=== PATIENT | male | born 1995 | race Caucasian/White ===

== ENCOUNTER 2017-09-28 19:13 | Emergency (ER) | payer SELFPAY, OTHER ==
[2017-09-28] MEDS: predniSONE 20 MG TABLET PO (19:44)
[2017-09-28 20:17] LABS: INFLUENZA A PATIENT POSITIVE (NEGATIVE); INFLUENZA B PATIENT NEGATIVE (NEGATIVE); OBC FLU VALID
== END 2017-09-28 20:47 | disposition home or self-care (01) ==
LOC: ER 19:13
DX: J09.X2 Influenza due to identified novel influenza A virus with other respiratory manifestations (principal)
CPT/HCPCS: 87804; 87804-59; 99284; J7512

== ENCOUNTER 2017-12-18 03:14 | Emergency (ER) | payer OTHER ==
[2017-12-18] MEDS: ONDANSETRON ODT 4 MG TAB.RAPDIS. PO (03:48)
[2017-12-18 04:07] LABS: BACTERIA,URINE 0 /HPF (0-FEW); BARBITURATES NEG (NEG); BENZODIAZEPINES NEG (NEG); BILIRUBIN,URINE NEGATIVE (NEG); CANNABINOIDS NEG (NEG); CLARITY,URINE CLEAR; COCAINE NEG (NEG); COLOR,URINE YELLOW; GLUCOSE,URINE NEGATIVE (NEG); METHADONE NEG (NEG); NITRITE,URINE NEGATIVE (NEG); OPIATES NEG (NEG); PH,URINE 6.5; PHENCYCLIDINE NEG (NEG); PROTEIN,URINE NEGATIVE (NEG-TRACE); RBC,URINE 0 /HPF (0-2); SQUAMOUS EPITHELIAL CELL,UR OCC /LPF; WBC,URINE OCC /HPF (0-4)
[2017-12-18 04:14] LABS: AMPHETAMINE/METHAMPHETAMINE NEG (NEG); ETHANOL, URINE NEG (NEG)
== END 2017-12-18 04:25 | disposition home or self-care (01) ==
LOC: ER 03:14
DX: R51 Headache (principal); R42 Dizziness and giddiness
CPT/HCPCS: 70450; 80307; 81001; 93005; 99285-25; Q0162

== ENCOUNTER 2018-01-11 21:33 | Emergency (ER) | payer OTHER | END 2018-01-11 22:15 | disposition home or self-care (01) | LOC: ER 22:15 | DX: R05 Cough (principal); J02.9 Acute pharyngitis, unspecified; R50.9 Fever, unspecified; J34.89 Other specified disorders of nose and nasal sinuses; Z88.0 Allergy status to penicillin; Z88.1 Allergy status to other antibiotic agents; Z88.8 Allergy status to other drugs, medicaments and biological substances | CPT/HCPCS: 99283 ==

== ENCOUNTER 2018-03-02 06:03 | Emergency (ER) | payer OTHER ==
[2018-03-02 06:27] LABS: ADD MAN DIFF? NO
[2018-03-02 06:35] LABS: BASO # 0.1 x10^3/uL (0.0-0.2); BASO % 1 % (0-3); EOS # 0.2 x10^3/uL (0.0-0.7); EOS % 4 % (0-3); HEMOGLOBIN 15.8 g/dL (13.0-17.5); LYMPH # 2.2 x10^3/uL (1.0-4.8); LYMPH % 39 % (24-48); MEAN CORPUSCULAR HEMOGLOBIN 31 pg (25-35); MEAN CORPUSCULAR HGB CONC 35 g/dL (31-37); MEAN CORPUSCULAR VOLUME 88 fL (79-100); MONO # 0.7 x10^3/uL (0.0-1.1); MONO % 13 % (0-9); NEUT # 2.4 x10^3uL (1.8-7.7); NEUT % 42 % (31-73); PLATELET COUNT 257 x10^3/uL (140-400); RED BLOOD COUNT 5.13 x10^6/uL (4.30-5.70); RED CELL DISTRIBUTION WIDTH 13.8 % (11.5-14.5); WHITE BLOOD COUNT 5.7 x10^3/uL (4.0-11.0)
[2018-03-02 06:37] LABS: ANION GAP 7 (6-14); BLOOD UREA NITROGEN 15 mg/dL (8-26); BUN/CREATININE RATIO 19 (6-20); CARBON DIOXIDE 29 mmol/L (21-32); CHLORIDE 103 mmol/L (98-107); CREATININE 0.8 mg/dL (0.7-1.3); GLUCOSE 109 mg/dL (70-99); SODIUM 139 mmol/L (136-145)
[2018-03-02 06:43] LABS: ALBUMIN 4.2 g/dL (3.4-5.0); ALBUMIN/GLOBULIN RATIO 1.5 (1.0-1.7); ALK PHOS 93 U/L (46-116); ALT (SGPT) 40 U/L (16-63); AST (SGOT) 27 U/L (15-37); TOTAL BILIRUBIN 0.7 mg/dL (0.2-1.0)
[2018-03-02 06:47] LABS: TROPONINI < 0.017 ng/mL (0.000-0.055)
== END 2018-03-02 07:30 | disposition home or self-care (01) ==
LOC: ER 06:03
DX: F41.9 Anxiety disorder, unspecified (principal); Z88.2 Allergy status to sulfonamides; Z88.0 Allergy status to penicillin; Z88.8 Allergy status to other drugs, medicaments and biological substances
CPT/HCPCS: 36415; 71045; 80053; 84484; 85025; 93005; 96374; 99285-25; J2060

== ENCOUNTER 2018-05-06 21:50 | Emergency (ER) | payer SELFPAY ==
[~2018-05-06] VITALS: Ht 182.9 cm; Wt 72.6 kg
[~2018-05-06 21:50] MED LIST: BENZ100C PO; GUAI600T47 PO; ONDA4TAB10 PO; OSEL75CA PO; PRED-220 PO
--- NOTE | 2018-05-06 22:58 | PHYS DOC ---
Past Medical History Past Medical History: No Pertinent History Past Surgical History: No Surgical History Smoking: Cigarettes (The patient is a nonsmoker.) Alcohol Use: None Drug Use: None Adult General Chief Complaint Chief Complaint: WEAKNESS/GENERALIZED HPI HPI Patient is a 23-year-old female who presents to the emergency department for evaluation. He states that today he is just felt generally weak and fatigued, as well as having some tightness in his chest and abdomen. He describes this tightness is muscle tightness. Has not had any nausea, vomiting, diarrhea, or urinary difficulties, although he states his urine has been dark, but still yellowish in color. He does admit to a mild headache. He has not had any fevers or chills. He denies any other focal painful areas. There are no alleviating, or exacerbating factors to his symptoms. He denies any numbness, or focal weakness. He has not been doing any excessive working outside. Denies any recent tick bites, or any exposure to areas where he might of coming contact with ticks. Review of Systems Review of Systems Constitutional: Denies fever or chills [] Eyes: Denies change in visual acuity, redness, or eye pain [] HENT: Denies nasal congestion or sore throat [] Respiratory: Denies cough or shortness of breath. Denies pleuritic pain.[] Cardiovascular: No additional information not addressed in HPI [] GI: Denies abdominal pain, other than some abdominal muscle tightness, nausea, vomiting, bloody stools or diarrhea [] : Denies dysuria or hematuria [] Musculoskeletal: Denies back pain or joint pain [] Integument: Denies rash or skin lesions [] Neurologic: Denies headache, focal weakness or sensory changes [] Endocrine: Denies polyuria or polydipsia [] All other systems were reviewed and found to be within normal limits, except as documented in this note. Current Medications Current Medications Current Medications Medications (Trade) Dose Ordered Sig/Galindo Start Time Stop Time Status Last Admin Dose Admin Sodium Chloride 1,000 ml @ 1,000 mls/hr Q1H 05/06/18 23:00 05/06/18 23:59 DC 05/06/18 23:12 1,000 MLS/HR Allergies Allergies Allergies Coded Allergies Type Severity Reaction Last Updated Verified Penicillins Allergy Severe Swelling 05/06/18 Yes acetaminophen Allergy Severe Swelling 05/06/18 Yes amoxicillin Allergy Severe Swelling 05/06/18 Yes dextromethorphan Allergy Severe Swelling 05/06/18 Yes doxylamine Allergy Severe Swelling 05/06/18 Yes ibuprofen Allergy Severe Swelling 05/06/18 Yes pseudoephedrine Allergy Severe Swelling 05/06/18 Yes Physical Exam Physical Exam PHYSICAL EXAM: CONSTITUTIONAL: Well developed, well nourished HEAD: normocephalic, atraumatic EENT: PERRL, EOMI. Conjunctivae normal color, sclerae non-icteric; moist mucous membranes. NECK: Supple, non-tender; no meningismus. LUNGS: Lungs CTA, breathing even and unlabored. Normal air movement. HEART: Regular rate and rhythm, no murmur CHEST: No deformity; non-tender ABDOMEN: The abdomen is soft, and non-tender, no masses or bruits. EXTREM: Normal ROM; no deformity, no calf tenderness. Normal pulses palpable in all extremities. There is no pedal edema. SKIN: No rash; no diaphoresis NEURO: Alert; normal speech and cognition; CN's grossly intact; strength grossly intact without focal deficit. BACK: No CVA TTP. Current Patient Data Vital Signs Vital Signs Date Time Temp Pulse Resp B/P (MAP) Pulse Ox O2 Delivery O2 Flow Rate FiO2 05/06/18 22:00 74 20 128/58 (81) 98 Room Air Lab Values Laboratory Tests Test 05/06/18 22:22 05/06/18 23:10 Urine Collection Type Unknown Urine Color Yellow Urine Clarity Clear Urine pH 6.0 Urine Specific [place] 1.025 Urine Protein Negative mg/dL (NEG-TRACE) Urine Glucose (UA) Negative mg/dL (NEG) Urine Ketones (Stick) Negative mg/dL (NEG) Urine Blood Negative (NEG) Urine Nitrite Negative (NEG) Urine Bilirubin Negative (NEG) Urine Urobilinogen Dipstick 1.0 mg/dL (0.2 mg/dL) Urine Leukocyte Esterase Negative (NEG) Urine RBC 0 /HPF (0-2) Urine WBC 0 /HPF (0-4) Urine Squamous Epithelial Cells Occ /LPF Urine Bacteria 0 /HPF (0-FEW) Urine Mucus Marked /LPF White Blood Count 6.3 x10^3/uL (4.0-11.0) Red Blood Count 4.95 x10^6/uL (4.30-5.70) Hemoglobin 14.9 g/dL (13.0-17.5) Hematocrit 42.8 % (39.0-53.0) Mean Corpuscular Volume 86 fL (79-100) Mean Corpuscular Hemoglobin 30 pg (25-35) Mean Corpuscular Hemoglobin Concent 35 g/dL (31-37) Red Cell Distribution Width 13.6 % (11.5-14.5) Platelet Count 209 x10^3/uL (140-400) Neutrophils (%) (Auto) 53 % (31-73) Lymphocytes (%) (Auto) 33 % (24-48) Monocytes (%) (Auto) 10 % (0-9) H Eosinophils (%) (Auto) 3 % (0-3) Basophils (%) (Auto) 1 % (0-3) Neutrophils # (Auto) 3.4 x10^3uL (1.8-7.7) Lymphocytes # (Auto) 2.1 x10^3/uL (1.0-4.8) Monocytes # (Auto) 0.6 x10^3/uL (0.0-1.1) Eosinophils # (Auto) 0.2 x10^3/uL (0.0-0.7) Basophils # (Auto) 0.1 x10^3/uL (0.0-0.2) Sodium Level 140 mmol/L (136-145) Potassium Level 3.7 mmol/L (3.5-5.1) Chloride Level 104 mmol/L (98-107) Carbon Dioxide Level 29 mmol/L (21-32) Anion Gap 7 (6-14) Blood Urea Nitrogen 16 mg/dL (8-26) Creatinine 0.8 mg/dL (0.7-1.3) Estimated GFR (Cockcroft-Gault) 122.0 BUN/Creatinine Ratio 20 (6-20) Glucose Level 100 mg/dL (70-99) H Calcium Level 8.6 mg/dL (8.5-10.1) Phosphorus Level 4.3 mg/dL (2.6-4.7) Magnesium Level 1.8 mg/dL (1.8-2.4) Total Bilirubin 0.3 mg/dL (0.2-1.0) Aspartate Amino Transferase (AST) 16 U/L (15-37) Alanine Aminotransferase (ALT) 27 U/L (16-63) Alkaline Phosphatase 89 U/L (46-116) Creatine Kinase 114 U/L (39-308) Creatine Kinase MB (Mass) 0.6 ng/mL (0.0-3.6) Creatine Kinase MB Relative Index 0.5 % (0-4) Troponin I Quantitative < 0.017 ng/mL (0.000-0.055) OG-Xkm-M-Type Natriuretic Peptide 9 pg/mL (0-124) Total Protein 6.8 g/dL (6.4-8.2) Albumin 4.0 g/dL (3.4-5.0) Albumin/Globulin Ratio 1.4 (1.0-1.7) Lipase 188 U/L (73-393) Thyroid Stimulating Hormone (TSH) 1.846 uIU/mL (0.358-3.74) Free Thyroxine 0.96 ng/dL (0.76-1.46) Laboratory Tests 05/06/18 23:10 Laboratory Tests 05/06/18 23:10 EKG EKG [Normal sinus rhythm with a rate of 75 beats for minute, normal axis, normal intervals, there are no acute ischemic ST/T changes.] Radiology/Procedures Radiology/Procedures [PROCEDURE: CHEST PA & LATERAL PROCEDURE: CHEST PA LATERAL CLINICAL INDICATION: weak and dizzy COMPARISON: None FINDINGS: No pneumothorax identified. Cardiac and mediastinal contours unremarkable. No pulmonary consolidation or acute airspace disease. No acute osseous abnormalities identified. IMPRESSION: No pulmonary consolidation or acute airspace disease. ] Course & Med Decision Making Course & Med Decision Making Pertinent Labs and Imaging studies reviewed. (See chart for details) [12:00 AM: The patient's condition remained stable, he is feeling back to his baseline at this time and has no complaints. He feels well. I discussed test results, the need for close follow-up, expectant management, and return precautions.] Dragon Disclaimer Dragon Disclaimer This electronic medical record was generated, in whole or in part, using a voice recognition dictation system. Departure Departure Impression: Primary Impression: Weakness Additional Impression: Atypical chest pain Disposition: HOME, SELF-CARE Condition: STABLE Referrals: NO PCP (PCP) Patient Instructions: Chest Pain (Nonspecific), Weakness Additional Instructions: Use the provided resources to establish care with a primary care provider. Problem Qualifiers SIMON ANSARI MD May 06, 2018 22:58
[2018-05-06 23:00] LABS: BILIRUBIN,URINE NEGATIVE (NEG); CLARITY,URINE CLEAR; COLOR,URINE YELLOW; NITRITE,URINE NEGATIVE (NEG); PROTEIN,URINE NEGATIVE (NEG-TRACE)
[2018-05-06] MEDS ORDERED: IV NORMAL SALINE 1000ML BAG 1,000 ML IV SCH (23:00)
[2018-05-06 23:02] LABS: BACTERIA,URINE 0 /HPF (0-FEW); RBC,URINE 0 /HPF (0-2); SQUAMOUS EPITHELIAL CELL,UR OCC /LPF; WBC,URINE 0 /HPF (0-4)
[2018-05-06 23:20] LABS: BASO # 0.1 x10^3/uL (0.0-0.2); BASO % 1 % (0-3); EOS # 0.2 x10^3/uL (0.0-0.7); EOS % 3 % (0-3); HEMATOCRIT 42.8 % (39.0-53.0); HEMOGLOBIN 14.9 g/dL (13.0-17.5); LYMPH # 2.1 x10^3/uL (1.0-4.8); LYMPH % 33 % (24-48); MEAN CORPUSCULAR HEMOGLOBIN 30 pg (25-35); MEAN CORPUSCULAR HGB CONC 35 g/dL (31-37); MEAN CORPUSCULAR VOLUME 86 fL (79-100); MONO # 0.6 x10^3/uL (0.0-1.1); MONO % 10 % (0-9); NEUT # 3.4 x10^3uL (1.8-7.7); NEUT % 53 % (31-73); PLATELET COUNT 209 x10^3/uL (140-400); RED BLOOD COUNT 4.95 x10^6/uL (4.30-5.70); RED CELL DISTRIBUTION WIDTH 13.6 % (11.5-14.5); WHITE BLOOD COUNT 6.3 x10^3/uL (4.0-11.0)
[2018-05-06 23:32] LABS: CALCIUM 8.6 mg/dL (8.5-10.1); CREATININE 0.8 mg/dL (0.7-1.3); POTASSIUM 3.7 mmol/L (3.5-5.1)
--- NOTE | 2018-05-06 23:34 | RAD ---
PROCEDURE: CHEST PA LATERAL CLINICAL INDICATION: weak and dizzy COMPARISON: None FINDINGS: No pneumothorax identified. Cardiac and mediastinal contours unremarkable. No pulmonary consolidation or acute airspace disease. No acute osseous abnormalities identified. IMPRESSION: No pulmonary consolidation or acute airspace disease. Electronically signed by: Jae Collier DO (05/06/2018 11:31 PM) [facility]
[2018-05-06 23:36] LABS: ALBUMIN/GLOBULIN RATIO 1.4 (1.0-1.7); MAGNESIUM 1.8 mg/dL (1.8-2.4); PHOSPHORUS 4.3 mg/dL (2.6-4.7); TOTAL BILIRUBIN 0.3 mg/dL (0.2-1.0); TOTAL PROTEIN 6.8 g/dL (6.4-8.2)
[2018-05-06 23:43] LABS: FREE T4 0.96 ng/dL (0.76-1.46); THYROID STIM HORMONE (TSH) 1.846 uIU/mL (0.358-3.74)
[2018-05-07 00:15] VITALS: BP 110/66
--- NOTE | 2018-05-07 06:13 | EKG ---
[facility] [address] [place] [address] Test Date: 2018-05-06 Test Time: 23:03:13 Pat Name: Glynn Hung Department: Room: Gender: M [employer]: RICK : 1995 Requested By: SIOMN ANSARI Order Number: [id number] Reading MD: Measurements Intervals [place] Rate: 74 P: 44 CO: 164 QRS: 78 QRSD: 88 T: 53 QT: 374 QTc: 420 Interpretive Statements SINUS RHYTHM NORMAL ECG No previous ECG available for comparison
== END 2018-05-07 00:18 | disposition home or self-care (01) ==
LOC: MERGE 21:50 → ER 21:50
DX: R53.1 Weakness (principal); R07.89 Other chest pain; F17.200 Nicotine dependence, unspecified, uncomplicated; Z88.0 Allergy status to penicillin; Z88.1 Allergy status to other antibiotic agents; Z88.8 Allergy status to other drugs, medicaments and biological substances
CPT/HCPCS: 36415; 71046; 80053; 81001; 82553; 83690; 83735; 83880; 84100; 84439; 84443; 84484; 85025; 93005; 99285; J7030

== ENCOUNTER 2018-10-21 10:35 | Emergency (ER) | payer SELFPAY ==
[~2018-10-21] VITALS: Ht 182.9 cm; Wt 81.6 kg
[2018-10-21 10:40] VITALS: BP 116/55
[2018-10-21] MEDS ORDERED: LIDOCAINE WITH 8.4% SOD BICARB 3 ML DISP.SYRIN. INJ ONE (11:00)
[2018-10-21] MEDS ORDERED: HYDROcodone/APAP 5/325MG 1 TAB TABLET PO ONE (11:00)
--- NOTE | 2018-10-21 11:00 | PHYS DOC ---
Past Medical History Past Medical History: No Pertinent History (SENAIT LYLES APRN) Past Surgical History: No Surgical History (SENAIT LYLES APRN) Alcohol Use: None Drug Use: None (SENAIT LYLES APRN) Adult General Chief Complaint Chief Complaint: FOOT INJURY PAIN [facility] HPI Patient is a 23 year old male who presents with left heel pain that hurts every time he walks on it. Patient states she's noticed a black small area where he may have stepped on something but is unsure if he stepped on anything. Patient states he first noticed it about a week ago. The area has gotten very painful to walk on the last 2 days. Patient denies taking any medications. (SENAIT LYLES APRN) Review of Systems Review of Systems Constitutional: Denies fever or chills [] Eyes: Denies change in visual acuity, redness, or eye pain [] HENT: Denies nasal congestion or sore throat [] Respiratory: Denies cough or shortness of breath [] Cardiovascular: No additional information not addressed in HPI [] GI: Denies abdominal pain, nausea, vomiting, bloody stools or diarrhea [] : Denies dysuria or hematuria [] Musculoskeletal: Left heel pain. Denies back pain or joint pain [] Integument: Denies rash or skin lesions [] Neurologic: Denies headache, focal weakness or sensory changes [] All other systems were reviewed and found to be within normal limits, except as documented in this note. (SENAIT LYLES APRN) Current Medications Current Medications Current Medications Medications (Trade) Dose Ordered Sig/Galindo Start Time Stop Time Status Last Admin Dose Admin Acetaminophen/ Hydrocodone Bitart (Lortab 5/325) 1 tab 1X ONCE 10/21/18 11:00 10/21/18 11:01 UNV Diphtheria/ Tetanus/Acell Pertussis (Boostrix) 0.5 ml ONCE ONCE 10/21/18 12:45 10/21/18 12:46 DC 10/21/18 12:38 0.5 ML Lidocaine/ Epinephrine (Let Topical) 3 ml 1X ONCE 10/21/18 11:30 10/21/18 11:31 DC 10/21/18 11:27 3 ML Lidocaine/Sodium Bicarbonate (Buffered Lidocaine 1%) 3 ml 1X ONCE 10/21/18 11:00 10/21/18 11:01 DC 10/21/18 11:17 3 ML (LUCIE ALVAREZ MD) Allergies Allergies Allergies Coded Allergies Type Severity Reaction Last Updated Verified acetaminophen Allergy Severe Swelling 05/07/18 Yes dextromethorphan Allergy Severe Swelling 05/07/18 Yes doxylamine Allergy Severe Swelling 05/07/18 Yes ibuprofen Allergy Severe Swelling 05/07/18 Yes pseudoephedrine Allergy Severe Swelling 05/07/18 Yes Penicillins Allergy Intermediate 03/02/18 Yes amoxicillin Allergy Intermediate 03/02/18 Yes guaifenesin Allergy Intermediate 03/02/18 Yes (LUCIE ALVAREZ MD) Physical Exam Physical Exam Constitutional: Well developed, well nourished, no acute distress, non-toxic appearance. [] HENT: Normocephalic, atraumatic, bilateral external ears normal, oropharynx moist, no oral exudates, nose normal. [] Eyes: PERRLA, EOMI, conjunctiva normal, no discharge. [] Neck: Normal range of motion, no tenderness, supple, no stridor. [] Cardiovascular:Heart rate regular rhythm, no murmur [] Lungs & Thorax: Bilateral breath sounds clear to auscultation [] Abdomen: Bowel sounds normal, soft, no tenderness, no masses, no pulsatile masses. [] Skin: Pinpoint black circular area that is tender to touch on bottom of left heel. Warm, dry, no erythema, no rash. [] Back: No tenderness, no CVA tenderness. [] Extremities: No tenderness, no cyanosis, no clubbing, ROM intact, no edema. [] Neurologic: Alert and oriented X 3, normal motor function, normal sensory function, no focal deficits noted. [] Psychologic: Affect normal, judgement normal, mood normal. [] (SENAIT LYLES APRN) Current Patient Data Vital Signs Vital Signs Date Time Temp Pulse Resp B/P (MAP) Pulse Ox O2 Delivery O2 Flow Rate FiO2 10/21/18 10:40 97.7 75 18 116/55 (75) 98 Room Air 97.7 (LUCIE ALVAREZ MD) EKG EKG [] (SENAIT LYLES APRN) Radiology/Procedures Radiology/Procedures Left foot xray (SENAIT LYLES APRN) Impressions: [facility] [address] [place] [address] IMAGING REPORT Signed PATIENT: JARON BLACKMAN ACCOUNT: [id number] : 1995 LOCATION: ER AGE: 23 SEX: M EXAM STATUS: REG ER ORD. PHYSICIAN: SENAIT LYLES APRN REASON: POSSIBLE FOREIGN BODY IN BOTTOM OF HEEL PROCEDURE: FOOT LEFT 3V Examination: FOOT LEFT 3V History: PT STATES HE STEPPED ON A PIECE OF GLASS 1 WEEK AGO. SMALL PUNCTURE WOUND ON LT HEEL Comparison/Correlation: None Findings: 3 images of the left foot were obtained. Joint spaces are normal. No acute fracture or bony destruction. Punctate density is noted involving the lateral soft tissues about the ankle level on the AP view of the foot. This is of indeterminate significance. Impression: Punctate density at the lateral soft tissues about the ankle is of indeterminate significance. There is no plantar radiopaque foreign body. Consider further evaluation if foreign bodies are a persistent concern. Electronically signed by: Paddy Kendall MD (10/21/2018 11:26 AM) [id number] DICTATED and SIGNED BY: PADDY KENDALL MD DATE: 10/21/18 1124 (SENAIT LYLSE APRN) Course & Med Decision Making Course & Med Decision Making Patient has a pinpoint black circular area on the bottom of his left heel that is tender to palpation. There is no redness or signs of infection. Patient does not remember injuring her foot or stepping on anything. Patient's rate his pain a 9 out of 10/she went to standing turned a walk. Patient states that for the last week but has gotten painful in the last 2 days. Alert and oriented. Walks with a steady gait. Mucous membranes moist. Skin pink warm and dry. Vital signs within normal limits. Differentials for the patient is a wart or a foreign body. Xray shows Punctate density at the lateral soft tissues about the ankle is of indeterminate significance. There is no plantar radiopaque foreign body. Consider further evaluation if foreign bodies are a persistent concern. The area is numbed with LET and lidocaine. Abscess Incision and Drainage with irrigation by me: Location: Left heel Anesthesia: LET and Local 1% Lidocaine Technique: Irrigated with copious amounts of Normal saline and Chlorhexidine. Disrupted loculations w/ instrumentation Packing: None Complications: Neurovascularly intact post procedure No foreign bodies found. Forrest does have a punctuate but likely the object that punctured the foot did not stay in the food. No drainage, no signs of infection. 48 hour wound check. Scar minimization instructions given. ED Ultrasound: Abscess localized by me using concurrent ultrasound guidance and assessment of the anatomy. Real time image archived in the medical record confirms anatomy. (SENAIT LYLES APRN) Course & Med Decision Making Staff Physician Addendum: I was working in the ER during the course of this patient's visit. I was available for consultation as needed, but I was not directly involved in the care of this patient. (LUCIE ALVAREZ MD) Dragon Disclaimer Dragon Disclaimer This electronic medical record was generated, in whole or in part, using a voice recognition dictation system. (SENAIT LYLES APRN) Departure Departure Impression: Primary Impression: Puncture wound of foot Disposition: HOME, SELF-CARE Condition: STABLE Referrals: NO PCP (PCP) Patient Instructions: Puncture Wound Additional Instructions: Follow up in ED in 48 hours for a wound check. Keep area covered and clean. Take medication as prescribed. Scripts Ciprofloxacin Hcl (CIPRO) 500 Mg Tablet 1 TAB PO BID for 7 Days, #14 TAB Prov: SENAIT LYLES APRN 10/21/18 Tramadol Hcl (TRAMADOL HCL) 50 Mg Tablet 50 MG PO Q6HRS PRN for PAIN, #10 TAB Prov: SENAIT LYLES APRN 10/21/18 Problem Qualifiers Primary Impression: Puncture wound of foot Encounter type: initial encounter Laterality: left Qualified Codes: S91.332A - Puncture wound without foreign body, left foot, initial encounter SENAIT LYLES APRN Oct 21, 2018 11:00 LUCIE ALVAREZ MD Oct 22, 2018 09:16
--- NOTE | 2018-10-21 11:29 | RAD ---
Examination: FOOT LEFT 3V History: PT STATES HE STEPPED ON A PIECE OF GLASS 1 WEEK AGO. SMALL PUNCTURE WOUND ON LT HEEL Comparison/Correlation: None Findings: 3 images of the left foot were obtained. Joint spaces are normal. No acute fracture or bony destruction. Punctate density is noted involving the lateral soft tissues about the ankle level on the AP view of the foot. This is of indeterminate significance. Impression: Punctate density at the lateral soft tissues about the ankle is of indeterminate significance. There is no plantar radiopaque foreign body. Consider further evaluation if foreign bodies are a persistent concern. Electronically signed by: Paddy Hollingsworth MD (10/21/2018 11:26 AM) [id number]
[2018-10-21] MEDS ORDERED: LIDOCAINE/EPI/TETRACAINE TOPICAL GEL 3 ML. TP ONE (11:30)
[2018-10-21] MEDS ORDERED: TRAM50TA PO (12:36)
[2018-10-21] MEDS ORDERED: CIPR500T94 PO (12:40)
[2018-10-21] MEDS ORDERED: DIPHTH,PERTUSS(ACELL),TET TOX 0.5 ML DISP.SYRIN. VAX IM ONE (12:45)
== END 2018-10-21 12:50 | disposition home or self-care (01) ==
LOC: ER 10:35
DX: S91.332A Puncture wound without foreign body, left foot, initial encounter (principal); Z88.0 Allergy status to penicillin; Z88.6 Allergy status to analgesic agent; Z88.2 Allergy status to sulfonamides; Z88.1 Allergy status to other antibiotic agents; Z88.8 Allergy status to other drugs, medicaments and biological substances; X58.XXXA Exposure to other specified factors, initial encounter; Y93.01 Activity, walking, marching and hiking; Y92.89 Other specified places as the place of occurrence of the external cause; Y99.8 Other external cause status
CPT/HCPCS: 10060; 73630; 90471; 90715; 99283

== ENCOUNTER 2018-12-23 08:40 | Emergency (ER) | payer SELFPAY ==
[~2018-12-23] VITALS: Ht 182.9 cm; Wt 81.6 kg
[~2018-12-23 08:40] MED LIST changes: +CIPR500T94 PO; +TRAM50TA PO
[2018-12-23 08:55] VITALS: BP 118/57
[2018-12-23] MEDS ORDERED: TRAM50TA PO (09:07)
[2018-12-23] MEDS ORDERED: CLIN300C8 PO (09:07)
--- NOTE | 2018-12-23 09:07 | PHYS DOC ---
Past Medical History Past Medical History: No Pertinent History (DYANA SOTO APRN) Past Surgical History: No Surgical History (DYANA SOTO APRN) Alcohol Use: None Drug Use: None (DYANA SOTO APRN) Adult General Chief Complaint Chief Complaint: DENTAL PROBLEM HPI HPI Patient is a 23 year old male who presents with mild to moderate left upper gum dental pain that began 5 days ago. Patient denies any fever or trismus. He states he has an appointment with his dentist on Friday this week. Patient states the pain is worse when he eats cold foods. He describes the pain as throbbing and constant. (DYANA SOTO APRN) Review of Systems Review of Systems Constitutional: Denies fever or chills [] Respiratory: Denies cough or shortness of breath [] Musculoskeletal: Denies back pain or joint pain [] Integument: Denies rash or skin lesions [] Neurologic: Denies headache, focal weakness or sensory changes [] All other systems were reviewed and found to be within normal limits, except as documented in this note. (DYANA SOTO APRN) Allergies Allergies Allergies Coded Allergies Type Severity Reaction Last Updated Verified acetaminophen Allergy Severe Swelling 05/07/18 Yes dextromethorphan Allergy Severe Swelling 05/07/18 Yes doxylamine Allergy Severe Swelling 05/07/18 Yes ibuprofen Allergy Severe Swelling 05/07/18 Yes pseudoephedrine Allergy Severe Swelling 05/07/18 Yes Penicillins Allergy Intermediate 03/02/18 Yes amoxicillin Allergy Intermediate 03/02/18 Yes guaifenesin Allergy Intermediate 03/02/18 Yes (CHRISTINA JEFFERSON DO) Physical Exam Physical Exam Constitutional: Well developed, well nourished, no acute distress, non-toxic appearance. [] HENT: Normocephalic, atraumatic, bilateral external ears normal, oropharynx moist, no oral exudates, nose normal. [] Left upper gum tooth #14-18 a moderately decayed. Some of the teeth have grown on the side of each other, severe dental caries noted throughout his teeth. Very poor dental hygiene. No dental abscess. Abdomen: Bowel sounds normal, soft, no tenderness, no masses, no pulsatile masses. [] Skin: Warm, dry, no erythema, no rash. [] Back: No tenderness, no CVA tenderness. [] Extremities: No tenderness, no cyanosis, no clubbing, ROM intact, no edema. [] Neurologic: Alert and oriented X 3, normal motor function, normal sensory function, no focal deficits noted. [] Psychologic: Affect normal, judgement normal, mood normal. [] (DYANA SOTO APRN) Current Patient Data Vital Signs Vital Signs Date Time Temp Pulse Resp B/P (MAP) Pulse Ox O2 Delivery O2 Flow Rate FiO2 12/23/18 08:55 98.5 75 15 118/57 (77) 99 Room Air 98.5 (CHRISTINA EJFFERSON DO) EKG EKG [] (DYANA SOTO APRN) Radiology/Procedures Radiology/Procedures [] (DYANA SOTO APRN) Course & Med Decision Making Course & Med Decision Making Pertinent Labs and Imaging studies reviewed. (See chart for details) Patient has infected dental caries. Will be discharged on clindamycin. Given 10 tablets of tramadol. He has an appointment with his dentist on Friday. (DYANA SOTO APRN) Dragon Disclaimer Dragon Disclaimer This electronic medical record was generated, in whole or in part, using a voice recognition dictation system. (DYANA SOTO APRN) Departure Departure Impression: Primary Impression: Infected dental caries Disposition: HOME, SELF-CARE Condition: STABLE Referrals: NO PCP (PCP) follow up with your dentist on Friday as scheduled Patient Instructions: Dental Caries Additional Instructions: You have infected dental caries. Complete your antibiotics, take them as prescribed until completed. Follow-up with your dentist on Friday as scheduled. Scripts Tramadol Hcl (TRAMADOL HCL) 50 Mg Tablet 50 MG PO Q6HRS PRN for PAIN, #8 TAB MUST FILL CLINDAMYCIN PRIOR TO TRAMADOL Prov: DYANA SOTO APRN 12/23/18 Clindamycin Hcl (CLINDAMYCIN HCL) 300 Mg Capsule 1 CAP PO TID, #21 CAP Prov: DYANA SOTO APRN 12/23/18 Attending Signature Attending Signature I have reviewed the PA/MATHEMATICIAN RESEARCH's note and plan of care. I was available for consultation as needed during the patient's visit in the emergency department. I agree with the clinical impression, plan, and disposition. (CHRISTINA JEFFERSON DO) DYANA SOTO APRN Dec 23, 2018 09:07 CHRISTINA JEFFERSON DO Dec 24, 2018 11:33
== END 2018-12-23 09:17 | disposition home or self-care (01) ==
LOC: ER 08:40
DX: K02.9 Dental caries, unspecified (principal); Z88.6 Allergy status to analgesic agent; Z88.0 Allergy status to penicillin; Z88.1 Allergy status to other antibiotic agents; Z88.8 Allergy status to other drugs, medicaments and biological substances
CPT/HCPCS: 99283